=== PATIENT | male | born 1980 | race Caucasian/White ===

== ENCOUNTER 2022-06-15 14:00 | Outpatient (RCR) | payer MEDICAID, OTHER, SELFPAY ==
--- NOTE | 2022-04-16 12:15 | PTOPEVAL1 ---
Assessment and note entered by Luisana Oneill DPT Evaluation Information Assessment Status Evaluation Diagnosis s/p stroke with R sided hemiparesis Onset 03/01/22 Subjective Information Patient reports he was having migraines for a few months and was dealing with short term memory loss that were mini stroke. In February he had a stroke and by the evening time he was starting to demonstrate R sided weakness. He went to the ER and was diagnosed with a stroke. Since the stroke he reports making a lot of progress and has been able to walk with a FWW and now a quad cane. Patient denies pain. No stairs to enter the home. He lives with his aunt and uncle now and his aunt is home to assist. He had home health and is continuing to do the exercies they provided. He sees his PCP next week and Dr. Foster on June 21. Patient's aunt is present for evaluation. Reported Pain Level Pain Score 0: Self Report Assessment PT Clinical Summary Bruno is a 42 year old male who presents to PT with R sided hemiparesis following stroke on 03/01. Patient demonstrates decreased R LE strength, impaired balance and impaired gait mechanincs impairing his ability to complete daily ADLs and IADLs. He would benefit from skilled PT to address impairments and return to PLOF. Plan of Care Interventions Gait Training,Hot Pack/Cold Pack,Manual Therapy, Neuro Re-education,Patient/Caregiver Educati, Therapeutic Activities,Therapeutic Exercise,Self- Care/Home Management PT Services Indicated Yes Treatment Frequency and 2x weekly for 10 visits Duration These treatments will address the objective and functional deficits as defined above. The patient will be advanced safely and appropriately in order for the patient to progress towards his/her prior level of function. Additional exercises will be introduced and as well as a comprehensive home exercise program upon discharge, if needed, ?to ensure carryover of functional gains achieved in the clinic. This treatment plan has been reviewed and agreement upon by the patient.
--- NOTE | 2022-04-27 09:58 | BUOTOPEVAL ---
Assessment and note entered by Princess Alcantar, OT Evaluation Information Assessment Status Evaluation Diagnosis CVA Onset February 2022 Subjective Information The patient and caregiver have reported improvement in UE function since onset of CVA. The patient's aunt reports that they have been encouraging the patient to use his affected UE as much as possible. Reported Pain Level Pain Score 0: Self Report Pain Score 0: Self Report Assessment OT Clinical Summary The patient is a 42 year old male who was referred to outpatient OT due to recent onset of CVA. The patient's PMH includes but is not limited to anxiety, depression, migraines, memory loss and CVA. The patient previously was independent with all ADLs, IADLs, driving, work tasks and transfers without use of any AE. 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 The patient now requires assistance for IADLs of meal preparation and laundry due to decreased function of R UE. The patient requires skilled OT to address current deficits and improve overall function of dominant UE. Plan of Care Interventions Therapeutic Exercise,Manual Therapy,Neuro Re- education,Therapeutic Activities,Hot Pack/Cold Pack,Electrical Stimulation,Sensory Integrative Techn,Self-Care/Home Management,Check Out for Orthotic/Pr OT Services Indicated Yes Treatment Frequency and 2x/week for 10 visits. Duration These treatments will address the objective and functional deficits as defined above. The patient will be advanced safely and appropriately in order for the patient to progress towards his/her prior level of function. Additional exercises will be introduced and as well as a comprehensive home exercise program upon discharge, if needed, ?to ensure carryover of functional gains achieved in the clinic. This treatment plan has been reviewed and agreement upon by the patient.
--- NOTE | 2022-05-06 16:01 | BUSTOPEVAL1 ---
Assessment and note entered by Dori Pinzon, PROGRAM MANAGEMENT SPECIALIST Evaluation Information Assessment Status Evaluation Diagnosis CVA I63.312, Aphasia I69.320 Subjective Information Patient has had significant difficulties in memory , attention and response time since his CVA February 2022. He has been getting Homehealth for ST since the CVA and recently has been discharged. Reported Pain Level Pain Score 0: Self Report Pain Score 0: Self Report Pain Score 0: Self Report Additional Pain Score Comments Pt. c/o no pain. Assessment ST Clinical Summary Patient was referred for an ST evaluation by his doctor due to continued difficulties with memory, attention, processing and organizational skills since his CVA in February 2022. Patient recieved home health ST for 2 months and recently was discharged with a recommendation to continue outpatient ST. The patient currently lives with family and requires assistance to complete daily living tasks along with taking medication and handling fianances. The patient presented with a mild/moderate aphasia through clinicial observation, patient history and testing. The patient presented with difficulty with paragraph retention tasks, recent/temporal memory, sequencing, sorting, categorizing, and functional reading tasks. The patient required increased time to complete all tasks with a delay in response time throughout. Recommendation for ST 2x/week for 10 sessions to target Aphasia to improve cognitive-communication skills to complete daily activites/tasks independently. Plan of Care Interventions Treatment for Cognitive F Treatment Frequency and 2x/week for 10 sessions. Duration These treatments will address the objective and functional deficits as defined above. The patient will be advanced safely and appropriately in order for the patient to progress towards his/her prior level of function. Additional exercises will be introduced and as well as a comprehensive home exercise program upon discharge, if needed, ?to ensure carryover of functional gains achieved in the clinic. This treatment plan has been reviewed and agreement upon by the patient.
--- NOTE | 2022-05-17 17:15 | OTOPPROG ---
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 The patient continues to demonstrate deficits in UE AROM, UE strength, stone setter metal optical frames /pinch strength, sensation, and fine motor coordination which make it difficult to return to prior level of independence. The patient continues to require skilled OT 2x/week to address current deficits and improve function of R UE. Plan of Care Interventions Therapeutic Exercise,Manual Therapy,Neuro Re- education,Therapeutic Activities,Hot Pack/Cold Pack,Electrical Stimulation,Sensory Integrative Techn,Self-Care/Home Management,Check Out for Orthotic/Pr,Ultrasound OT Services Indicated Yes Treatment Frequency and 2x/week for 10 visits. Duration These treatments will address the objective and functional deficits as defined above. The patient will be advanced safely and appropriately in order for the patient to progress towards his/her prior level of function. Additional exercises will be introduced and as well as a comprehensive home exercise program upon discharge, if needed, ?to ensure carryover of functional gains achieved in the clinic. This treatment plan has been reviewed and agreement upon by the patient.
--- NOTE | 2022-05-17 17:16 | PTOPEVAL1 ---
Assessment and note entered by Juvencio Isaacs Evaluation Information Assessment Status Progress Diagnosis s/p stroke with R sided hemiparesis Onset 02/1922 Subjective Information Pt. reports that he continues to work on walking without his cane. He reports that Reported Pain Level Pain Score 0: Self Report Pain Score 0: Self Report Pain Score 0: Self Report Assessment PT Clinical Summary Pt. demonstrates slight progress in regards to strength and mobility. He continues to present as a high fall risk. continued deficits in strength , balance and mobility are present despite progress. Recommend continued skilled PT focusing on all remaining goals to optimize pt. function and safety. Plan of Care Interventions Gait Training,Manual Therapy,Neuro Re-education, Patient/Caregiver Educati,Therapeutic Activities, Therapeutic Exercise,Self-Care/Home Management PT Services Indicated Yes Treatment Frequency and 2x/week x 8 vsiits Duration These treatments will address the objective and functional deficits as defined above. The patient will be advanced safely and appropriately in order for the patient to progress towards his/her prior level of function. Additional exercises will be introduced and as well as a comprehensive home exercise program upon discharge, if needed, ?to ensure carryover of functional gains achieved in the clinic. This treatment plan has been reviewed and agreement upon by the patient.
[2022-05-25 14:00] VITALS: O2SAT 33
[2022-05-31 14:00] VITALS: O2SAT 75
[2022-06-01 14:00] VITALS: O2SAT 70
--- NOTE | 2022-06-08 14:53 | PCSTNOTE ---
Patient called & cancelled scheduled appointment this date due to having a rough day.
--- NOTE | 2022-06-14 15:00 | BUOTOPEVAL ---
Assessment and note entered by Dori Singh OT Evaluation Information Assessment Status Evaluation Diagnosis CVA Onset February 2022 Subjective Information Patient reports that things are going well. Patient states that he is using his R UE more and tends to be more confident with using it at home versus out in public. Patient is able to put away his own clothes and perform all ADLs with independence. He is not currently doing any IADLs . Patient reports that this is something he would like to get back to doing. Patient would also like to be more confident in using his R UE. Reported Pain Level Pain Score 0: Self Report Pain Score 0: Self Report Pain Score 0: Self Report Pain Score 0: Self Report Pain Score 0: Self Report Pain Score 0: Self Report Pain Score 0: Self Report Pain Score 0: Self Report Pain Score 0: Self Report Pain Score 0: Self Report Pain Score 0: Self Report Pain Score 0: Self Report Pain Score 0: Self Report Pain Score 0: Self Report Pain Score 0: Self Report Pain Score 0: Self Report Pain Score 0: Self Report Pain Score 0: Self Report Pain Score 0,4: Self Report Pain Score 0: Self Report Pain Score 0: Self Report Pain Score 0: Self Report Pain Score 0: Self Report Pain Score 0: Self Report Pain Score 0: Self Report Pain Score 0: Self Report Pain Score 4: Self Report Pain Score 0: Self Report Pain Score 0: Self Report Pain Score 0: Self Report Pain Score 0: Self Report Pain Score 0: Self Report Pain Score 0: Self Report Pain Score 0: Self Report Pain Score 0: Self Report
--- NOTE | 2022-06-15 15:25 | STOPPROG ---
Assessment and note entered by Dori Pinzon, CLIENT SERVICE EXECUTIVE Evaluation Information Assessment Status Progress Diagnosis CVA I63.312, Aphasia I69.320 Onset 02-26-22 Subjective Information Patient has had significant difficulties in memory , attention and response time since his CVA February 2022. He continues to see improvements through ST treatment but feels that he continues to struggle with his memory and functional organizational skills. Assessment ST Clinical Summary Patient has completed 10 sessions of speech therapy to target difficulties with memory, attention, processing and organizational skills which resulted from CVA in February 2022. The patient currently presents with mild/moderate aphasia but continues to show progression in goals to improve memory, organizational skills, and functional reading. Goals were added this date to target speech intelligiblity skills. Patient reported that he has always spoke at a low volume but often has slurred speech that he did not have prior to the stroke. Patient presents with monotoned speech which will be targeted in the upcoming sessions. Currently the patient presents with difficulty with paragraph retention tasks, recent memory, sequencing, sorting/categorizing, functional mathematical tasks, speech intelligiblity, and functional reading tasks. The patient continues to require increased time to complete tasks but is showing improvement in task completion with less assistance. Recommendation for ST 2x/week for 10 sessions to target Aphasia to improve cognitive-communication skills to complete daily activites/tasks independently. Plan of Care Interventions Treatment of Speech,Treatment for Cognitive F ST Services Indicated Yes ST Services Indicated Yes Treatment Frequency and 2x/wk for 10 sessions Duration These treatments will address the objective and functional deficits as defined above. The patient will be advanced safely and appropriately in order for the patient to progress towards his/her prior level of function. Additional exercises will be introduced and as well as a comprehensive home exercise program upon discharge, if needed, ?to ensure carryover of functional gains achieved in the clinic. This treatment plan has been reviewed and agreement upon by the patient.
--- NOTE | 2022-06-22 14:26 | PCSTNOTE ---
Patient did not show up for scheduled appointment this date.
--- NOTE | 2022-06-28 14:01 | PCSTNOTE ---
Patient did not show up for scheduled appointment this date.
--- NOTE | 2022-09-21 14:10 | BUSTOPDC ---
Assessment and note entered by Dori Pinzon, SEWER PIPE PRESS OPERATOR Evaluation Information Assessment Status Discharge Diagnosis CVA I63.312, Aphasia I69.320 Subjective Information Patient has had significant difficulties in memory , attention and response time since his CVA February 2022. Patient failed to continue treatment attendance and is discharged at this time. Assessment ST Clinical Summary Patient has completed 10 sessions of speech therapy to target difficulties with memory, attention, processing and organizational skills which resulted from CVA in February 2022. The patient currently presents with mild/moderate aphasia but continues to show progression in goals to improve memory, organizational skills, and functional reading. Patient has failed to attend ST sessions with last treatment on 06-15-22. Patient discharged from at this time.
--- NOTE | 2023-03-10 14:06 | PCOTNOTE ---
The patient is discharged due to >30 days since last treatment.
== END 2022-06-15 23:59 | disposition home or self-care (01) ==
LOC: CHSST 14:00
PROVIDERS: PCP Physician Assistant; Visit Provider Physician Assistant
DX: G83.10 Monoplegia of lower limb affecting unspecified side (principal)
CPT/HCPCS: 92507; 96125; 97110; 97112; 97116; 97162; 97166; 97530; 97750

== ENCOUNTER 2023-06-08 12:31 | Outpatient (CLI) | payer OTHER, SELFPAY ==
--- NOTE | ~2023-06-08 | US_ITS ---
US arterial ankle brachial ind INDICATION: Peripheral vascular disease TECHNIQUE: Segmental pressures and plethysmographic and Doppler waveforms of the brachial and lower e xtremity arteries were obtained. COMPARISON: None. FINDINGS: Right and left brachial artery pressures of 103 mm Hg and 103 mm Hg, respectively, are concordant (no rmal difference <= 30 mmHg). The right ankle-brachial index (SURYA) is 1.34 (normal >= 0.9-1.0). The right great toe-brachial index (TBI) is 0.81 (normal >= 0.60). The left SURYA is 1.2. The left TBI is 1.06. IMPRESSION: 1. Normal bilateral ankle-brachial indices. Reviewed, dictated and finalized at location B.
== END 2023-06-08 12:32 | disposition home or self-care (01) ==
LOC: CHSIMG 12:32
PROVIDERS: PCP Physician Assistant; Visit Provider Physician Assistant
DX: I73.89 Other specified peripheral vascular diseases (principal)
CPT/HCPCS: 93922